=== PATIENT | male | born 1995 | race Caucasian/White ===

== ENCOUNTER 2017-01-08 07:05 | Day surgery (SDC) | payer OTHER ==
[2017-01-08] VITALS (12 sets, daily range): BP systolic 73–126; BP diastolic 40–75; PULSE 54–106; RESP 9–25; Ht 167.6 cm; Wt 72.0 kg
[~2017-01-08] VITALS: Ht 167.6 cm; Wt 72.0 kg
[2017-01-08] MEDS ORDERED: FENTAnyl 50 MCG/ML VIAL ONE (09:29)
[2017-01-08] MEDS ORDERED: PROPOFOL 20 ML ONE (09:29)
[2017-01-08] MEDS ORDERED: MIDAZOLAM 1 MG/ML 2 ML INJ ONE (09:29)
[2017-01-08] MEDS ORDERED: ROPIVACAINE 0.5 % 30 ML VIAL ONE (09:29)
[2017-01-08] MEDS ORDERED: CEFAZOLIN 1 GM INJ ONE (09:29)
[2017-01-08] MEDS ORDERED: POLYMYXIN/BACITRACIN 1L IRRIG ONE (09:31)
[2017-01-08] MEDS ORDERED: BUPIVACAINE 0.25% (MPF) 30 ML INJ ONE (09:50)
[2017-01-08] MEDS ORDERED: METOCLOPRAMIDE 10 MG INJ ONE (10:20)
[2017-01-08] MEDS ORDERED: DEXAMETHASONE 4 MG/ML 1 ML INJ ONE (10:20)
[2017-01-08] MEDS ORDERED: ONDANSETRON 4 MG INJ ONE (10:20)
[2017-01-08] MEDS ORDERED: KETOROLAC 30 MG INJ ONE (10:21)
[2017-01-08] MEDS ORDERED: POLYMYXIN/BACITRACIN 1L IRRIG IRR ONE (10:39)
[2017-01-08] MEDS ORDERED: BUPIVACAINE 0.25% (MPF) 30 ML INJ INJ ONE (10:39)
[2017-01-08] MEDS ORDERED: morphine (1 MG/ML) 10ML SYRINGE IV PRN ×3 (11:00)
[2017-01-08] MEDS ORDERED: EPHEDrine SULFATE 50 MG/5 ML SYG IV PRN (11:00)
[2017-01-08] MEDS ORDERED: OXYCODONE/ACETAMINOPHEN (5/325) TAB PO PRN ×2 (11:00)
[2017-01-08] MEDS ORDERED: DIPHENHYDRAMINE 50 MG INJ IV PRN (11:00)
[2017-01-08] MEDS ORDERED: HYDROmorphONE (0.2 MG/ML) 10ML SYG IV PRN ×3 (11:00)
[2017-01-08] MEDS ORDERED: ONDANSETRON 4 MG INJ IV PRN (11:00)
[2017-01-08] MEDS ORDERED: MEPERIDINE 25 MG INJ IV PRN (11:00)
[2017-01-08] MEDS ORDERED: MEPERIDINE 100 MG INJ ONE (11:01)
--- NOTE | 2017-01-08 11:12 | OPR ---
Date/Time of Note Date/Time of Note DATE: 01/08/17 TIME: 11:12 Operative Report Preoperative Diagnosis RIH Postoperative Diagnosis RIH Operation/Procedure Performed open incarcerated RIH repair with mesh right ilioinguinal nerve block Surgeon: Marga BURNS G. SEONG Jan 08, 2017 11:12
[2017-01-08] MEDS ORDERED: HYDROCODONE/APAP (5/325) TAB PO ONE (11:30)
--- NOTE | 2017-01-08 16:12 | OPR ---
DATE OF OPERATION: 01/08/2017 INDICATION: This is a 21-year-old male with a right inguinal hernia that is incarcerated. He reque sts surgical repair. Risks, alternatives, benefits, and personnel were discussed with the patient a nd mother. They expressed understanding and consent to the operation. PREOPERATIVE DIAGNOSIS: Right inguinal hernia. POSTOPERATIVE DIAGNOSIS: Right inguinal hernia. OPERATION: 1. Open right incarcerated inguinal hernia repair with medium size UltraPro hernia system mesh. 2. Right ilioinguinal nerve block. SURGEON: Salvador Sparks MD SPECIMEN: None. COMPLICATIONS: None. ANESTHESIA: General. DESCRIPTION OF PROCEDURE: The patient was taken to the OR and prepped and draped in the usual steri le fashion. Surgical timeout was performed. IV antibiotics were given. Right inguinal oblique inc ision was made with a 10 blade. Dissection cautery was carried down to the external oblique fascia which was opened with a 15 blade. This incision was extended medial inferiorly and lateral superior ly. Cord structures are identified and encircled with a Valdez drain. ____ identified and reduced . This area is bolstered with the disk portion of the UltraPro hernia system mesh which was sutured in place with running 0 Prolene from the pubic tubercle along the shelving edge of the inguinal lig ament and superiorly to the internal oblique with interrupted 3-0 Vicryl. Onlay mesh is secured in a similar fashion with running 0 Prolene from the pubic tubercle along the shelving edge of the ingu inal ligament. ____ reapproximated around the cord structures to recreate the inguinal ligament wit h interrupted 0 Prolene. Onlay mesh was secured ____ with interrupted 3-0 Vicryl. External oblique fascia was closed with a running 3-0 Vicryl. Mayra was closed with interrupted 3-0 Vicryl. Skin was closed using skin rick. Local anesthesia is injected. Additional right ilioinguinal block w as performed by identifying a location 2 square medial and anterior to the ASIS, and in a fanning mo tion, local anesthesia was injected. Dry dressings were applied. Dictated By: SALVADOR NEO/NELLIE Conf#: [id number] DID#: [id number]
== END 2017-01-08 13:15 | disposition home or self-care (01) ==
LOC: SDS 07:05
PROVIDERS: ATTEND Surgery
DX: K40.30 Unilateral inguinal hernia, with obstruction, without gangrene, not specified as recurrent (principal)
CPT/HCPCS: 49507; C1781; J0690; J1100; J1885; J2175; J2250; J2405; J2765; J2795; J3010; Z7512; Z7610